=== PATIENT | female | born 1985 | race Two or more races ===

== ENCOUNTER 2018-06-09 14:17 | Outpatient (CLI) | payer BC ==
[2018-06-11 08:06] LABS: PROGESTERONE 3.9 ng/mL (.)
== END 2018-06-09 23:59 | disposition home or self-care (01) ==
LOC: LAB 14:17
PROVIDERS: ATTEND Obstetrics & Gynecology
DX: O02.81 Inappropriate change in quantitative human chorionic gonadotropin (hCG) in early pregnancy (principal); R87.1 Abnormal level of hormones in specimens from female genital organs
CPT/HCPCS: 36415; 86803